=== PATIENT | female | born 1990 | race African-American/Black ===

== ENCOUNTER 2017-07-31 07:03 | Inpatient (IN) ==
[2017-07-31] MEDS ORDERED: BUTORPHANOL 2 MG/ML VIAL IV PRN (07:23)
[2017-07-31] MEDS ORDERED: MEPERIDINE 50 MG/1 ML VIAL IV PRN (07:23)
[2017-07-31] MEDS ORDERED: ONDANSETRON 4 MG/2 ML VIAL IV PRN (07:23)
[2017-07-31] MEDS ORDERED: OXYTOCIN/LR 20 UNIT/1,000 ML BAG IV SCH (07:30)
[2017-07-31] MEDS ORDERED: LACTATED RINGERS 1,000 ML IV SCH ×2 (07:30→08:30)
[2017-07-31 07:43] LABS: Basophils % 0.3 % (0.0-0.8); Eosinophils # 0.1 10*3/uL (0.0-0.87); Eosinophils % 0.9 % (0.00-10.9); Hematocrit 32.6 VOL% (35.7-47.0); Hemoglobin 10.6 GM/DL (12.0-16.0); Immature Granulocytes % 0.9 %; Immature Granulocytes Absolute 0.06 #; Lymphocytes # 2.3 10*3/uL (1.4-4.0); Lymphocytes % 35.5 % (21.3-54.2); Mean Corpuscular HGB Conc 32.5 GM/DL (32-36); Mean Corpuscular Hemoglobin 28 PG (27-34); Mean Corpuscular Volume 86.2 FL (87-102); Mean Platelet Volume 11.6 FL (9.6-12.0); Monocytes # 0.6 10*3/uL (0.11-0.8); Monocytes % 9.3 % (1.7-12.7); Neutrophils # 3.5 10*3/uL (1.4-7.4); Neutrophils % 53.1 % (38.7-73.9); Platelet Count 233 T/CUMM (130-400); Red Blood Count 3.78 MC/CUMM (3.8-5.5); Red Cell Distribution Width 14.6 % (9.3-17.3); White Blood Count 6.6 T/CUMM (4-12)
[2017-07-31] MEDS ORDERED: TERBUTALINE 1 MG/1 ML VIAL SUBCUT ONE ×2 (07:45→07:46)
[2017-07-31] MEDS ORDERED: diphenhydrAMINE 50 MG/1 ML VIAL IV PRN ×2 (08:04)
[2017-07-31] MEDS ORDERED: ONDANSETRON 4 MG/2 ML VIAL IV ONE (08:04)
[2017-07-31] MEDS ORDERED: ePHEDrine 50 MG/ML AMP IV PRN (08:04)
[2017-07-31] MEDS ORDERED: FAMOTIDINE 20 MG/2 ML VIAL IV ONE (08:04)
[2017-07-31] MEDS ORDERED: CITRIC ACID/SODIUM CITRATE 30 ML UDCUP PO ONE (08:04)
[2017-07-31] MEDS ORDERED: LACTATED RINGERS 1,000 ML IV ONE (08:04)
[2017-07-31] MEDS ORDERED: hydrOXYzine HCL 25 MG/1 ML VIAL IM PRN (08:04)
[2017-07-31] MEDS ORDERED: PROMETHAZINE 25 MG/1 ML VIAL IM ONE (08:04)
[2017-07-31] MEDS ORDERED: AMPICILLIN INJ 2,000 MG in SODIUM CHLORIDE 0.9% 50 ML IV ONE (08:11)
[2017-07-31 08:17] LABS: Bilirubin,Total 0.4 MG/DL (0.2-1.0); Calcium 8.5 MG/DL (8.5-10.1); Osmolality,Calculated 269.8 MOS/KG (273-304); Potassium 3.7 MMOL/L (3.5-5.1)
[2017-07-31] MEDS ORDERED: fentaNYL 2 MCG/ROPIV 0.2% EPID 150 ML EPIDURAL SCH (08:30)
[2017-07-31 11:49] LABS: Apearance,Urine CLEAR (Clear); Bilirubin,Urine Negative (Negative); Blood, Urine Negative (Negative); Glucose,Urine (UA) Negative (Negative); Ketones,Urine Negative (Negative); Mucus,Urine Occasional /LPF (Occasional); Nitrite,Urine Negative (Negative); Protein,Urine 30 MG/DL; RBC,Urine <1 /HPF (0-4); Squamous Epithelial Cell,Urine Occasional /HPF (0-10); Urine Color Yellow (Yellow); Urine Specific Gravity 1.013 (1.001-1.035); Urine Urobilinogen < 2.0 EU/DL (0.2-1.0); WBC,Urine 2 /HPF (0-6)
[2017-07-31] MEDS ORDERED: AMPICILLIN INJ 1,000 MG in SODIUM CHLORIDE 0.9% 50 ML IV SCH (12:00)
[2017-07-31] MEDS ORDERED: miSOPROStol 200 MCG TABLET ONE (12:18)
[2017-07-31] MEDS ORDERED: LIDOCAINE 1% 50 ML VIAL ONE (12:18)
[2017-07-31] MEDS ORDERED: ACETAMINOPHEN/CODEINE 300-30 MG TABLET PO PRN (13:28)
[2017-07-31] MEDS ORDERED: MEASLES/MUMPS/RUBELLA VACCINE 0.5 ML VIAL SUBCUT ONE (16:00)
[2017-07-31] MEDS ORDERED: HYDROCORTISONE 2.5% RECTAL CREAM 30 GM TUBE TOP PRN (16:00)
[2017-07-31] MEDS ORDERED: DIPH/TET/ACEL PERT BOOSTER VACCINE 0.5 ML VIAL IM ONE (16:00)
[2017-07-31] MEDS ORDERED: WITCH HAZEL PADS 100/JAR TOP PRN (16:00)
[2017-07-31] MEDS ORDERED: LANOLIN 50% CREAM 0.3 OZ TUBE TOP PRN (16:00)
[2017-07-31] MEDS ORDERED: BISACODYL 10 MG SUPP RECTAL PRN (16:00)
[2017-07-31] MEDS ORDERED: RHO(D) IMMUNE GLOBULIN 300 MCG SYRINGE IM ONE (16:00)
[2017-07-31] MEDS ORDERED: oxyCODONE/ACETAMINOPHEN 5-325 MG TABLET PO PRN ×2 (16:00)
[2017-07-31] MEDS ORDERED: ACETAMINOPHEN 325 MG TABLET PO PRN (16:00)
[2017-07-31] MEDS ORDERED: BENZOCAINE 20%/MENTHOL 0.5% SPRAY 56 GM CAN TOP PRN (16:00)
[2017-07-31] MEDS: IBUPROFEN 800 MG TABLET PO PRN (16:52)
[2017-07-31] MEDS: DOCUSATE SODIUM 100 MG CAPSULE PO SCH (20:31)
[2017-08-01 07:10] LABS: Basophils % 0.1 % (0.0-0.8); Eosinophils % 0.2 % (0.00-10.9); Hematocrit 30.4 VOL% (35.7-47.0); Hemoglobin 9.8 GM/DL (12.0-16.0); Immature Granulocytes % 0.5 %; Immature Granulocytes Absolute 0.07 #; Lymphocytes # 2.1 10*3/uL (1.4-4.0); Mean Corpuscular HGB Conc 32.2 GM/DL (32-36); Mean Corpuscular Hemoglobin 28 PG (27-34); Mean Corpuscular Volume 86.4 FL (87-102); Mean Platelet Volume 11.7 FL (9.6-12.0); Monocytes % 7.7 % (1.7-12.7); Neutrophils # 9.7 10*3/uL (1.4-7.4); Neutrophils % 75.5 % (38.7-73.9); Platelet Count 201 T/CUMM (130-400); Red Blood Count 3.52 MC/CUMM (3.8-5.5); Red Cell Distribution Width 14.6 % (9.3-17.3); White Blood Count 12.9 T/CUMM (4-12)
[2017-08-01] MEDS: DOCUSATE SODIUM 100 MG CAPSULE PO SCH ×2 (10:18→21:24)
[2017-08-01] MEDS: FERROUS SULFATE 325 MG TABLET PO SCH (21:24)
[2017-08-01] MEDS: IBUPROFEN 800 MG TABLET PO PRN (23:59)
[2017-08-02 07:39] VITALS: BP 106/69
[2017-08-02] MEDS: FERROUS SULFATE 325 MG TABLET PO SCH (08:56)
[2017-08-02] MEDS: DOCUSATE SODIUM 100 MG CAPSULE PO SCH (08:56)
[2017-08-02] MEDS ORDERED: INFLUENZA VIRUS VACCINE 0.5 ML SYRINGE IM ONE ×2 (09:00→11:00)
== END 2017-08-02 13:00 | disposition home or self-care (01) | DRG 775 ==
LOC: N.LDOUT 07:03 → N.LD 07:08 → N.OB 14:52
PROVIDERS: ADMIT Obstetrics & Gynecology; ATTEND Obstetrics & Gynecology